=== PATIENT | male | born 1945 | race Caucasian/White ===

== ENCOUNTER 2023-01-31 13:47 | Inpatient (IN) | payer MEDICARE, SELFPAY ==
[2023-01-31] VITALS (52 sets, daily range): BP systolic 123–199; BP diastolic 63–117; PULSE 80–96; RESP 14–25; TEMP 36.9; O2SAT 93–100
--- NOTE | ~2023-01-31 | XR_ITS ---
XR chest 1V portable 01/31/2023 15:56 Indication: Stroke Procedure: AP portable chest Comparison: No prior studies for comparison. Findings: Status post median sternotomy for CABG. Cardiomegaly. Calcified granuloma left lung base. N o focal pneumonia, edema, pleural effusion or pneumothorax. Impression: 1: No acute cardiopulmonary disease. Reviewed, dictated and finalized at location B. CONSULTANT Impression: 1: No acute cardiopulmonary disease.
--- NOTE | ~2023-01-31 | US_ITS ---
EXAMINATION: US abdomen limited DATE: 02/03/2023 14:44 INDICATION: Abnormal liver function tests. TECHNIQUE: Multiple grayscale and Doppler ultrasound images of the abdomen were obtained. COMPARISON: None FINDINGS: The visualized portions of the head and body of the pancreas are normal. There is diffuse h epatic steatosis. No liver surface nodularity. There is normal flow in main portal vein. The gallblad sindy is absent. The common duct is normal and measures 8 mm. IMPRESSION: 1. Diffuse hepatic steatosis. Reviewed, dictated and finalized at location E. E INSTALLATION MANAGER
--- NOTE | ~2023-01-31 | MR_ITS ---
MRI of the brain Clinical History: CVA Technique: Axial diffusion weighted imaging and ADC map were performed. Patient terminated exam at th is point. No additional sequences were performed.. Findings: There is a large relatively wedge-shaped area of restricted diffusion in the left parietal lobe, with additional restricted diffusion in the immediate left periventricular white matter and foc ally in the anterior left corpus callosum and inferomedial left frontal lobe. These areas are all con sistent with areas of acute to subacute infarct. No midline shift or ventricular compression evident. IMPRESSION: Large acute to subacute infarct in the left parietal lobe, with additional acute infarct in the immed iate left periventricular white matter and the anterior corpus callosum and adjacent inferomedial lef t frontal lobe. Reviewed, dictated and finalized at location . ROASTER IMPRESSION: Large acute to subacute infarct in the left parietal lobe, with additional acut e infarct in the immediate left periventricular white matter and the anterior c orpus callosum and adjacent inferomedial left frontal lobe.
--- NOTE | ~2023-01-31 | CT_ITS ---
CT ANGIOGRAM NECK AND HEAD History: CVA. Technique: Axial noncontrast imaging of the brain was performed. Serial spiral axial images through t he head and neck were then obtained during arterial phase IV injection of 100 cc of Omnipaque 350. 3- D postprocessing and MIP images were then reconstructed on the remote workstation. Dose reduction federica hnique was used on this scan by utilizing automated exposure control and iterative reconstruction federica hnique. The dose-length product (DLP) was 1859.89 mGy-cm. COMPARISON: 01/31/2023 CTA neck findings: Bilateral vertebral arteries are patent. There is a focal high-grade stenosis at the distal left vertebral artery near the foramen magnum. Right vertebral artery is patent. There is focal moderate stenosis at the right vertebral artery at the level of C4. Bilateral common carotid, i nternal carotid, external carotid arteries are patent. Low-grade stenosis, possibly 10%, the proximal left internal carotid artery noted. Low-grade, approximately 15% stenosis, of the proximal right int ernal carotid artery again noted. The proximal right internal carotid artery demonstrates 15% stenosi s relative to the normal distal artery lumen diameter. The proximal left internal carotid artery demo nstrates 10% stenosis relative to the normal distal artery lumen diameter. CTA head findings: Basilar artery and posterior cerebral arteries are patent. Distal internal carotid arteries and anterior cerebral arteries are patent. There are stable focal moderate stenoses in the proximal posterior cerebral arteries bilaterally. Stable focal high-grade stenosis in the left anteri or cerebral artery noted. Axial noncontrast imaging of the brain demonstrates acute to subacute left parietal lobe infarct, min imally avulsed from prior exam. No acute intracranial hemorrhage evident. Stable chronic white matter changes. Minimal subarachnoid spaces are mildly dilated. No midline shift. Paranasal sinuses are gloria ar. Impression: Overall, probably no significant change from prior exam. Left parietal lobe infarct is similar, with mild interval evolution. No intracranial hemorrhage. Stable areas of stenosis, including high-grade stenosis at the distal left vertebral artery, moderate stenosis of the mid right vertebral artery, moderate stenoses in the proximal posterior cerebral art eries bilaterally, and high-grade stenosis in the left anterior cerebral artery. Mild stenosis of the proximal internal carotid arteries bilaterally, as detailed above. Reviewed, dictated and finalized at location M. TAL MEDIA ASSOCIATE Impression: Overall, probably no significant change from prior exam. Left parietal lobe inf arct is similar, with mild interval evolution. No intracranial hemorrhage. Stable areas of stenosis, including high-grade stenosis at the distal left vert ebral artery, moderate stenosis of the mid right vertebral artery, moderate florencia noses in the proximal posterior cerebral arteries bilaterally, and high-grade s tenosis in the left anterior cerebral artery. Mild stenosis of the proximal internal carotid arteries bilaterally, as detaile d above.
--- NOTE | ~2023-01-31 | CT_ITS ---
EXAMINATION: CTA brain carotid DATE: 01/31/2023 15:09 INDICATION: Right arm weakness. TECHNIQUE: Computed tomographic angiography (CTA) of the head was performed without and with 100 mL O mnipaque-350 intravenous contrast. CTA of the neck was performed with intravenous contrast. Automated exposure control and iterative reconstruction technique were employed. The dose-length product was 1 804.52 mGy-cm. Maximum intensity projection and volume rendered 3D-reconstructions were created by dat may technologist on a separate workstation. COMPARISON: Head CT 01/25/2023 FINDINGS: HEAD CTA: There is an infarct in left parietal lobe. There are scattered areas of low attenuation in the cerebral white matter. There are old lacunar infarcts in the bilateral basal ganglia. There is no intracranial hemorrhage or abnormal mass lesion. The ventricles are normal in size. There is mucosal thickening in the paranasal sinuses. There are old fractures of the nasal bones. There are old blowo ut fractures of medial wall and floor of left orbit. The mastoid air cells are normal. There is moder ate stenosis of intracranial left vertebral artery. The vertebral arteries are codominant. There is n o significant stenosis of basilar artery. There is moderate stenosis of right P1 posterior cerebral a rtery and left P2 posterior cerebral artery. There is moderate stenosis of the intracranial internal carotid arteries. There is severe stenosis of left A2 anterior cerebral artery. The anterior communi cating artery is normal. The posterior communicating arteries are normal. There is no aneurysm. NECK CTA: There are no pathologically enlarged lymph nodes. There is no significant stenosis of the c ervical vertebral arteries. There is plaque in the proximal internal carotid arteries. There is 18% s tenosis of the proximal right internal carotid artery relative to normal distal artery lumen diameter (NASCET criteria). There is 8% stenosis of the proximal left internal carotid artery relative to nor mal distal artery lumen diameter. There are changes of anterior fusion procedure from 3 C3-C7. There is severe thoracic spondylosis and mild cervical spondylosis. IMPRESSION: 1. Acute/subacute infarct in left parietal lobe, worsened from 01/25/2023. 2. Old lacunar infarcts in the bilateral basal ganglia. 3. Moderate nonspecific cerebral white matter disease, which likely represents chronic small vessel i schemic disease. 4. Severe stenosis of left A2 anterior cerebral artery. 5. Moderate stenosis of right P1 posterior cerebral artery and left P2 posterior cerebral artery. 6. Moderate stenosis of the intracranial internal carotid arteries. 7. Focal moderate stenosis of intracranial left vertebral artery. 8. 18% stenosis of the proximal right internal carotid artery relative to normal distal artery lumen diameter (NASCET criteria). 9. 8% stenosis of the proximal left internal carotid artery relative to normal distal artery lumen di ameter. Reviewed, dictated and finalized at location E. FRAME ASSEMBLER IMPRESSION: 1. Acute/subacute infarct in left parietal lobe, worsened from 01/25/2023. 2. Old lacunar infarcts in the bilateral basal ganglia. 3. Moderate nonspecific cerebral white matter disease, which likely represents chronic small vessel ischemic disease. 4. Severe stenosis of left A2 anterior cerebral artery. 5. Moderate stenosis of right P1 posterior cerebral artery and left P2 posterio r cerebral artery. 6. Moderate stenosis of the intracranial internal carotid arteries. 7. Focal moderate stenosis of intracranial left vertebral artery. 8. 18% stenosis of the proximal right internal carotid artery relative to lanie l distal artery lumen diameter (NASCET criteria). 9. 8% stenosis of the proximal left internal carotid artery relative to normal
--- NOTE | 2023-01-31 13:53 | ED.NEUROSD ---
HPI - Neuro Symptoms/Deficit General Chief Complaint: Neuro Symptoms/Deficit Stated Complaint: neuro sx since tuesday Source: patient, family (daughter and granddaughter) and other (EMS report to RN) Mode of arrival: EMS History of Present Illness HPI Narrative: This is a 77 year old left hand dominant male with report of a recent CVA (01/13/2023) presenting from [facility]. It is reported that he has subsequent R sided deficits but had been able to move his right arm and leg somewhat. Starting this past Tuesday, it seemed to be getting progressively worse, until he started having reported full flaccidity in RUE and RLE and there was also concern of a R sided droop. Last known well > 24 hours ago given this. No report of TPA given with initial stroke but there was possible surgical intervention. A&OX4. EMS reported PVCs with some bigeminy which resolved with O2. POC glucose for EMS 312mg/dL. On my exam, patient confirms he has been having difficulty moving RUE and RLE, unable to move the arm at all today but does demonstrate movement of leg on my exam. He is concerned about his pain regimen. Per documentation, he takes 30mg morphine BID for chronic pain and has PRN [place]. Patient has documentation of the HPI from [facility] where he was admitted 01/24/2023. the primary reason for rehab is acute infarct over anterior corpus callosum and left frontoparietal region. He initially presented to [facility] on 01/13/2023. At that time CTH was negative for intracranial process. He was awaiting MRI of the brain and cervical spine we had an episode of acute right-sided weakness and a code stroke was called on 01/17/2023. MRI of the brain was performed and demonstrated acute infarct over anterior corpus callosum and left frontoparietal region.... No mural thrombosis or valvular vegetation on echo... left ICA stenosis to 69%. Tele stroke team consulted. Patient transferred to [facility] for evaluation for possible CVA versus carotid stent. Neurosurgery consulted. The patient underwent carotid revascularization of the angioplasty and stenting 01/19/2023. No intervention indicated due to no significant ICA. Postprocedure, the patient has several PVCs. Cardiology was consulted. Related Data Home Medications Medication Instructions Recorded Confirmed aspirin 81 mg tablet,delayed 81 mg PO DAILY 01/24/23 02/01/23 release atorvastatin 40 mg tablet 40 mg PO DAILY 01/24/23 02/01/23 carvedilol 6.25 mg tablet 6.25 mg PO BID 01/24/23 02/01/23 clopidogrel 75 mg tablet 75 mg PO DAILY 01/24/23 02/01/23 docusate sodium 100 mg tablet 200 mg PO DAILY 01/24/23 02/01/23 empagliflozin 25 mg tablet 25 mg PO DAILY 01/24/23 02/01/23 (Jardiance) furosemide 20 mg tablet 20 mg PO DAILY 01/24/23 02/01/23 hydrocodone-acetaminophen 5 - 325 mg PO Q8H PRN Pain 01/24/23 02/01/23 ketotifen fumarate 0.025 % (0.035 1 drp EACH EYE BID 01/24/23 02/01/23 %) eye drops (Allergy Eye (ketotifen)) lisinopril 10 mg tablet 10 mg PO DAILY 01/24/23 02/01/23 methylnaltrexone 150 mg tablet 450 mg PO DAILY 01/24/23 02/01/23 (Relistor) methylnaltrexone 150 mg tablet 450 mg PO DAILY 01/24/23 02/01/23 (Relistor) morphine 30 mg tablet,extended 30 mg PO Q12H 01/24/23 02/01/23 release ondansetron 4 mg disintegrating 4 mg PO Q8H PRN Nausea And Vomiting 01/24/23 02/01/23 tablet tamsulosin 0.4 mg capsule 4 mg PO DAILY 01/24/23 02/01/23 Allergies Allergy/AdvReac Type Severity Reaction Status Date / Time No Known Allergies Allergy Verified 01/31/23 14:55 [facility] Past Medical History Medical History BPH (benign prostatic hyperplasia) CAD (coronary artery disease) Cardiac LV ejection fraction of 35-39% Carotid artery stenosis with cerebral infarction Left December 2022 Cervical disc disease Chronic back pain Chronic hypoxic respiratory failure, on home oxygen therapy COPD (chronic
--- NOTE | 2023-01-31 13:54 | ECG_ITS ---
Measurements Intervals [place] Rate: 96 P: 66 [place]: 165 QRS: 59 QRSD: 82 T: 76 QT: 371 QTc: 470 Interpretive Statements SINUS RHYTHM WITH OCCASIONAL VENTRICULAR PREMATURE COMPLEXES NONSPECIFIC T-WAVE ABNORMALITY ABNORMAL ECG NO PREVIOUS ECG AVAILABLE FOR COMPARISON Electronically Signed On 01-31-2023 15:30:37 BRICK GRADER by Ozzy Velázquez M.D.
[2023-01-31 14:29] LABS: Basophils Absolute Auto 0.1 K/mm3 (0.0-0.1); Basophils Percent Auto 0.7 % (0.2-1.2); Eosinophils Absolute Auto 0.2 K/mm3 (0-0.3); Hemoglobin 15.8 g/dL (14.0-18.0); Immature Granulocyte Absolute 0.39 K/mm3 (0.00-0.031); Immature Granulocyte Percent A 3.3 % (0-0.5); Lymphocytes Absolute Auto 1.82 K/mm3 (0.9-3.2); Lymphocytes Percent Auto 15.2 % (18.3-44.2); Mean Corpuscular HGB Conc 31.6 g/dl (32-36); Mean Corpuscular Hemoglobin 28.1 pg (26-34); Mean Platelet Volume 11.7 fl (7.4-10.4); Monocytes Percent Auto 8.4 % (2.6-8.5); Neutrophils Absolute Auto 8.4 K/mm3 (1.3-6.7); Neutrophils Percent Auto 70.4 % (45.5-73.1); Platelet Count Result 238 k/mm3 (150-375); Red Blood Count 5.62 M/mm3 (4.6-6.20); Red Cell Distribution Width 14.9 % (11.5-14.5)
[2023-01-31 14:40] LABS: Alanine Aminotransferase 93 U/L (6-50); Albumin Level 3.6 g/dL (3.5-5.1); Alkaline Phosphatase 317 U/L (38-126); Anion Gap 5 mmol/L (8-16); Aspartate Amino Transferase 46 U/L (17-59); Bilirubin,Total 0.8 mg/dL (0.2-1.3); Blood Urea Nitrogen 28 mg/dL (9-20); Calcium 9.3 mg/dL (8.4-10.2); Carbon Dioxide 30 mmol/L (22-30); Chloride 102 mmol/L (98-107); Estimated CRCL calculation 70 ml/min; Estimated Glomerular Filt Rate > 60; Glucose 234 mg/dL (65-110); Potassium 4.3 mmol/L (3.4-5.0); Sodium 137 mmol/L (137-145)
[2023-01-31 14:46] LABS: Prothrombin Time 13.9 Seconds (11.1-14.7)
[2023-01-31 14:47] LABS: Partial Thromboplastin Time 30.3 SECONDS (22.3-36.8)
[2023-01-31 14:51] LABS: Troponin I 0.012 ng/mL (0.000-0.034)
[2023-01-31] MEDS: HYDROcodone/acetaminophen (*CRX) 5-325 MG TABLET 1 TAB PO ×2 (16:32→22:22)
--- NOTE | 2023-01-31 18:37 | PC.NURSE ---
1825- spoke with Lyndsey from [facility] transfer center, updates given, will call with bed when it is available
[2023-01-31] MEDS: MORPHINE SULFATE (*CRX) 30 MG TABCR PO (19:39)
--- NOTE | 2023-01-31 22:50 | PC.NURSE ---
per family pt. is not to be transferred to [facility] for further care. pt. family requesting pt. be kept here at [facility]. ERP aware and agrees to this plan. RN cancelled pt. bed request at [facility].
[2023-01-31] MEDS: ACETAMINOPHEN 325 MG TABLET 650 MG PO (23:22)
[2023-02-01] VITALS (13 sets, daily range): BP systolic 107–156; BP diastolic 60–77; PULSE 75–101; RESP 14–29; TEMP 36.1–36.3; O2SAT 95–100; BMI 29.2
--- NOTE | 2023-02-01 01:52 | PC.NURSE ---
Unable to confirm a current list of medications with patient r/t confusion. Called [facility] to get medication list and Charge nurse says she is unable to access patient's chart because she discharged him from the system. Medication list reconciled from list from 01/24/23. Dr. Love made aware.
[2023-02-01] MEDS: HYDROcodone/acetaminophen (*CRX) 5-325 MG TABLET 1 TAB PO ×3 (06:08→15:10)
--- NOTE | 2023-02-01 06:55 | PM.IMHP ---
H&P: HPI History of Present Illness Date/Time: 02/01/23 06:55 Chief Complaint: Worsening right-sided weakness Narrative: 77-year-old male with a past medical history of systolic congestive heart failure type 2 diabetes mellitus, coronary artery disease, hyperlipidemia and chronic back pain on chronic opiate therapy who presented to the ER from [place] [facility] due to increasing weakness of the right a body. The patient had been admitted to the hospital on 2022 at [facility] due to acute stroke. The patient was awaiting an MRI of the brain and cervical spine UA had an acute episode of for right sided weakness on the . MRI at that time demonstrated an acute infarct of the anterior corpus callosum and left frontal parietal region. He had echocardiogram at that time did demonstrate EF of 35-40 %. He was transferred to [place] for evaluation for possible placement of carotid state given the and left internal carotid stenosis up to 69%. The patient underwent carotid revascularization via angioplasty and stenting on the . The patient's stay was complicated that time but episodes of PVCs for which patient's home Coreg was restarted. Patient also had medication adjustments for heart failure. Patient was evaluated by speech therapy OT and PT. The patient swallow evaluation was normal and he was continued on a consistent carbohydrate diet but of normal consistency. The patient has persisted right-sided weakness following his CVA. He was undergoing therapy. The around 13:30 the patient had increased right-sided weakness and increased slurred speech and the patient was sent to our facility for evaluation. The patient reportedly had complete flaccid paralysis of the right side at the rehab facility with by time he arrived to the ER he was moving his right leg. The patient states he has not been able to move his hand since his stroke. His speech is clear but slow. He denies any visual changes, headache or neurologic symptoms. Nursing staff noted that the patient's foreskin and penis were excoriated and red due to urinary incontinence in a pure wick catheter has been placed. He denies any dysuria or changes in urinary frequency. He denies any abdominal pain reports normal bowel movements. Nursing staff reports patient is alert oriented but seems to be having occasional moments of confusion overnight. At the time of my evaluation is alert orient x4. Source of information comes from patient is a fair historian. ER records, reports from outside facility and nursing report. Review of Systems Review of Systems: 12 systems were reviewed with pertinent positives and negatives per HPI. Except as documented in the HPI, all other systems were reviewed and are negative. [facility] Past Medical History Medical History (Updated 02/01/23 @ 07:50 by Kristin Love DO) BPH (benign prostatic hyperplasia) CAD (coronary artery disease) Cardiac LV ejection fraction of 35-39% Carotid artery stenosis with cerebral infarction Left December 2022 Cervical disc disease Chronic back pain Chronic hypoxic respiratory failure, on home oxygen therapy COPD (chronic obstructive pulmonary disease) Lumbar disc disease Type 2 diabetes mellitus Surgical History Surgical History (Updated 02/01/23 @ 07:12 by Kristin Love DO) History of common carotid artery stent placement Family History Family History (Updated 02/01/23 @ 07:20 by Kristin Love DO) Other Unknown family medical history Social History Social History (Updated 02/01/23 @ 07:22 by Kristin Love DO) Social History: Prior to his stroke the patient lives at home with his of 55 years and their son. He was independent with a activities of daily living and still driving. Patient is left handed. Smoking packs per day: 1 Smoking cigarettes per day: 20.0 Years smoked: 25 Smoking pack-years: 25.00 Smoking status: Former smoker Additional smoking
[2023-02-01 07:42] LABS: Glucose Point of Care 184 mg/dl (65-105)
[2023-02-01] MEDS: MORPHINE SULFATE (*CRX) 30 MG TABCR PO ×2 (08:59→21:04)
[2023-02-01] MEDS: carvediloL 6.25 MG TABLET PO ×2 (08:59→21:04)
[2023-02-01] MEDS: TAMSULOSIN HCL 0.4 MG CAPSULE PO (08:59)
[2023-02-01] MEDS: EMPAGLIFLOZIN 25 MG TABLET PO (08:59)
[2023-02-01] MEDS: CLOPIDOGREL BISULFATE 75 MG TABLET PO (08:59)
[2023-02-01] MEDS: lisinopriL 10 MG TABLET PO (08:59)
[2023-02-01] MEDS: ASPIRIN 81 MG CHEWABLE TABLET PO (09:05)
[2023-02-01] MEDS: ATORVASTATIN 40 MG TABLET PO (09:06)
[2023-02-01] MEDS: FUROSEMIDE 20 MG TABLET PO (09:06)
[2023-02-01] MEDS: DOCUSATE SODIUM 100 MG CAPSULE 200 MG PO (09:06)
[2023-02-01 12:05] LABS: Glucose Point of Care 184 mg/dl (65-105)
--- NOTE | 2023-02-01 12:40 | WPDNEURCNPN ---
Assessment and Plan Assessment and plan (1) CVA (cerebral vascular accident): Qualifiers: CVA mechanism: unspecified Qualified Code(s): I63.9 - Cerebral infarction, unspecified Code(s): I63.9 - Cerebral infarction, unspecified Status: Acute (2) Type 2 diabetes mellitus with hyperglycemia: Qualifiers: Diabetes mellitus mcfp insulin use: without intermediate school teacher use Qualified Code(s): E11.65 - Type 2 diabetes mellitus with hyperglycemia Code(s): E11.65 - Type 2 diabetes mellitus with hyperglycemia Status: Acute Plan left acute and subacute infarct in left parietal lobe with additional infarct in the immediate left periventricular white matter and the anterior corpus callosum and adjacent inferior medial left frontal lobe documented on the study on February 01, 2023 and CTA on January 31, 2023 documented acute subacute infarct in left parietal lobe which is worsening from January 25, 2023 in addition to old lacunar infarcts in bilateral basal ganglia moderate nonspecific white matter disease, severe stenosis of the left A2 anterior cerebral artery, moderate stenosis of the right P1 posterior cerebral artery left P2 posterior cerebral artery, moderate stenosis of intracranial internal carotid arteries, and focal moderate stenosis of intracranial left vertebral artery with 18% stenosis of proximal right internal carotid on 8% stenosis of proximal left internal carotid artery considering these multiple medium vessel disease he will not require any further intracranial arterial intervention will continue with the aspirin 81mg daily Plavix 75mg daily, atorvastatin 40mg daily, all his cardiac medications and antihypertensive medication thorough discussion will be provided to the family and he will benefit from the ongoing physical therapy. Consult date: 02/01/23 HPI: Aristides Valladares is a 77 year old male Admitted to the hospital through the emergency room on transfer from the [facility] where he was admitted on January 24, 2023 for acute infarct involving the anterior corpus callosum and left frontoparietal region as per the information available patient had presented to [facility] on January 13, [address] scan of the head was negative for the bleed and while he was waiting for the MRI of the brain and cervical spine he had an episode of acute right-sided weakness and a code stroke status was called on January 17, 2023 at that particular time MRI of the brain was performed which demonstrated acute infarct over the anterior corpus callosum and left frontoparietal region. There was also documentation of the left internal carotid artery stenosis to 69% by the cardiac studies were negative for the mural thrombosis or valvular vegetation he was transferred to [facility] for further evaluation and also for the possibility of carotid stenting because of left ICA stenosis patient revascularization and angioplasty and stenting on January 19, 2023 and in the post of. Patient was noted to have several PVCs and the candle molder were consulted as well, contain on aspirin 81mg daily with atorvastatin 40mg daily carvedilol 6.25mg b.i.d. and clopidogrel 75mg daily in addition to the antihypertensive medication that is lisinopril 10mg daily, patient does have ongoing history of coronary artery disease, chronic low back pain with lumbar disc disease, type 2 diabetes mellitus, never smoker, his initial exam in the emergency room documented normal vital signs was blood pressure 192/82 he was continued on aspirin and clopidogrel [facility] was contacted neurosurgical service for the and no further intervention was suggested again the consideration was given to the comparison of CTA this time his lab CBC was normal, BMP was normal except glucose of 234 and head neck CTA documented acute subacute infarct in the left parietal lobe which was worsening from January 25, 2023 in addition to
--- NOTE | 2023-02-01 16:14 | PM.IMPN ---
Progress Note: A&P Assessment and Plan (1) CVA (cerebral vascular accident): Qualifiers: CVA mechanism: unspecified Qualified Code(s): I63.9 - Cerebral infarction, unspecified Code(s): I63.9 - Cerebral infarction, unspecified Status: Acute Assessment and Plan: 02/01/2023: patient recently diagnosed with CVA at [facility] and was at acute rehab when he started to complain of worsening right-sided weakness and slurred speech which brought him in however the time he reached the ED he was able to move his right leg head and neck CTA show acute/ subacute infarct in the left parietal lobe which is worsened from 01/25/2023, moderate nonspecific cerebral white matter disease likely represents chronic small vessel ischemic disease, severe stenosis of left A2 anterior cerebral artery, moderate stenosis in right and left posterior cerebral artery, moderate stenosis of the intracranial internal carotid arteries. Brain MRI shows large acute to subacute infarct in the left parietal lobe, with additional acute infarct in the immediate left periventricular white matter and the anterior corpus callosum and adjacent inferiomedial left frontal. Neurology consulted and recommending no further intervention other than to continue aspirin, Protonix, atorvastatin, and blood pressure medications. In light of his transaminitis which is elevated from previous lab, we will still hold the atorvastatin we will continue to monitor labs Case coordination to arrange transfer back to rehab facility (2) Hemiparesis affecting right side as late effect of cerebrovascular accident: Code(s): I69.351 - Hemiplegia and hemiparesis following cerebral infarction affecting right dominant side Status: Acute Assessment and Plan: 02/01/2023 noted see above (3) Type 2 diabetes mellitus with hyperglycemia: Qualifiers: Diabetes mellitus shelter insulin use: without optical technician use Qualified Code(s): E11.65 - Type 2 diabetes mellitus with hyperglycemia Code(s): E11.65 - Type 2 diabetes mellitus with hyperglycemia Status: Acute Assessment and Plan: 02/01/2023: blood sugars ranging 156-184 Accu-Cheks AC and HS continue sliding scale insulin will check hemoglobin A1c in the morning labs. Time Spent With Patient Time with patient: Greater than 35 minutes Subjective Date/time seen: 02/01/23 16:14 Interval history: This is a 77-year-old male who presented to the hospital today for evaluation of increased weakness on right side of his body. He was hospitalized at at [facility] due to acute stroke. he was noted to have an increase in his right-sided weakness at the rehab center and some slurred speech. he was sent here for an evaluation. By the time he presented to our ER he was already moving his right leg. Work up in the hospital includes. Head and neck CTA which shows an acute/ subacute infarct in the left parietal lobe which is worsened from 01/25/2023, severe stenosis of left A2 anterior cerebral artery, moderate stenosis in the right P1 posterior cerebral artery and left P2 posterior cerebral artery, moderate stenosis of the intracranial internal carotid arteries, old lacunar infarcts in the bilateral basal ganglia, moderate nonspecific cerebral white matter disease which likely represents chronic small vessel ischemic disease. CXR was normal. Brain MRI shown Large acute to subacute infarct in the left parietal lobe with additional acute infarct in the immediate left periventricular white matter and the anterior corpus callosum and adjacent inferomedial left frontal lobe. On examination today patient is alert and oriented x3. Labs today reveal transaminitis AST of 183, ALT 165, alk-phos 399 which is increased from previous. Total bili 1.2, blood sugars ranging 156-184, BUN 25, creatinine 0.9, potassium 4.3, white blood cell count 10.4. Vital signs are stable, is afebrile, he
[2023-02-01 16:42] LABS: Glucose Point of Care 156 mg/dl (65-105)
[2023-02-01 17:29] LABS: Alanine Aminotransferase 165 U/L (6-50); Albumin Level 3.8 g/dL (3.5-5.1); Alkaline Phosphatase 399 U/L (38-126); Anion Gap 6 mmol/L (8-16); Aspartate Amino Transferase 183 U/L (17-59); Bilirubin,Total 1.2 mg/dL (0.2-1.3); Blood Urea Nitrogen 25 mg/dL (9-20); Calcium 9.5 mg/dL (8.4-10.2); Carbon Dioxide 34 mmol/L (22-30); Chloride 97 mmol/L (98-107); Estimated CRCL calculation 55 ml/min; Estimated Glomerular Filt Rate > 60; Glucose 261 mg/dL (65-110); Potassium 4.3 mmol/L (3.4-5.0); Sodium 137 mmol/L (137-145)
[2023-02-01 17:31] LABS: Basophils Absolute Auto 0.1 K/mm3 (0.0-0.1); Eosinophils Absolute Auto 0.1 K/mm3 (0-0.3); Eosinophils Percent Auto 1.4 % (0-4.4); Hematocrit 52.1 % (42.0-52.0); Hemoglobin 16.7 g/dL (14.0-18.0); Immature Granulocyte Absolute 0.44 K/mm3 (0.00-0.031); Immature Granulocyte Percent A 4.2 % (0-0.5); Lymphocytes Percent Auto 19.3 % (18.3-44.2); Mean Corpuscular HGB Conc 32.1 g/dl (32-36); Mean Corpuscular Hemoglobin 28.5 pg (26-34); Mean Corpuscular Volume 89.1 fl (80-100); Mean Platelet Volume 11.6 fl (7.4-10.4); Monocytes Absolute Auto 0.9 K/mm3 (0.1-0.6); Monocytes Percent Auto 8.2 % (2.6-8.5); Neutrophils Absolute Auto 6.8 K/mm3 (1.3-6.7); Neutrophils Percent Auto 65.9 % (45.5-73.1); Platelet Count Result 292 k/mm3 (150-375); Red Blood Count 5.85 M/mm3 (4.6-6.20); Red Cell Distribution Width 14.6 % (11.5-14.5); White Blood Count 10.4 K/mm3 (4.5-10.0)
[2023-02-01] MEDS: INSULIN ASPART (*BKC) 100 UNITS/ML SUB-Q (21:09)
[2023-02-01 21:13] LABS: Glucose Point of Care 254 mg/dl (65-105)
[2023-02-02] VITALS (11 sets, daily range): BP systolic 100–129; BP diastolic 61–85; PULSE 73–104; RESP 18–20; TEMP 36.1–36.6; O2SAT 95–98
[2023-02-02 06:53] LABS: Basophils Absolute Auto 0.1 K/mm3 (0.0-0.1); Basophils Percent Auto 1.2 % (0.2-1.2); Eosinophils Absolute Auto 0.2 K/mm3 (0-0.3); Eosinophils Percent Auto 1.7 % (0-4.4); Hematocrit 49.2 % (42.0-52.0); Hemoglobin 15.8 g/dL (14.0-18.0); Immature Granulocyte Absolute 0.44 K/mm3 (0.00-0.031); Immature Granulocyte Percent A 3.8 % (0-0.5); Lymphocytes Absolute Auto 1.78 K/mm3 (0.9-3.2); Lymphocytes Percent Auto 15.6 % (18.3-44.2); Mean Corpuscular HGB Conc 32.1 g/dl (32-36); Mean Corpuscular Hemoglobin 28.6 pg (26-34); Mean Platelet Volume 11.6 fl (7.4-10.4); Monocytes Absolute Auto 1.2 K/mm3 (0.1-0.6); Monocytes Percent Auto 10.8 % (2.6-8.5); Neutrophils Absolute Auto 7.6 K/mm3 (1.3-6.7); Neutrophils Percent Auto 66.9 % (45.5-73.1); Platelet Count Result 256 k/mm3 (150-375); Red Blood Count 5.53 M/mm3 (4.6-6.20); Red Cell Distribution Width 14.8 % (11.5-14.5); White Blood Count 11.4 K/mm3 (4.5-10.0)
[2023-02-02 07:06] LABS: Alanine Aminotransferase 153 U/L (6-50); Albumin Level 3.5 g/dL (3.5-5.1); Alkaline Phosphatase 371 U/L (38-126); Anion Gap 8 mmol/L (8-16); Aspartate Amino Transferase 106 U/L (17-59); Blood Urea Nitrogen 34 mg/dL (9-20); Calcium 9.6 mg/dL (8.4-10.2); Carbon Dioxide 28 mmol/L (22-30); Chloride 102 mmol/L (98-107); Estimated CRCL calculation 62 ml/min; Estimated Glomerular Filt Rate > 60; Glucose 155 mg/dL (65-110); Potassium 4.5 mmol/L (3.4-5.0); Sodium 138 mmol/L (137-145)
[2023-02-02 07:38] LABS: Hemoglobin A1C 7.4 % (<5.7)
[2023-02-02] MEDS: ASPIRIN 81 MG CHEWABLE TABLET PO (08:17)
[2023-02-02] MEDS: carvediloL 6.25 MG TABLET PO ×2 (08:18→20:33)
[2023-02-02] MEDS: CLOPIDOGREL BISULFATE 75 MG TABLET PO (08:18)
[2023-02-02] MEDS: DOCUSATE SODIUM 100 MG CAPSULE 200 MG PO (08:19)
[2023-02-02] MEDS: FUROSEMIDE 20 MG TABLET PO (08:19)
[2023-02-02] MEDS: EMPAGLIFLOZIN 25 MG TABLET PO (08:19)
[2023-02-02] MEDS: MORPHINE SULFATE (*CRX) 30 MG TABCR PO ×2 (08:19→20:33)
[2023-02-02] MEDS: TAMSULOSIN HCL 0.4 MG CAPSULE PO (08:19)
[2023-02-02 08:24] LABS: Glucose Point of Care 160 mg/dl (65-105)
[2023-02-02] MEDS: lisinopriL 10 MG TABLET PO (08:40)
[2023-02-02] MEDS: HYDROcodone/acetaminophen (*CRX) 5-325 MG TABLET 1 TAB PO ×2 (09:35→18:03)
[2023-02-02 11:58] LABS: Glucose Point of Care 184 mg/dl (65-105)
--- NOTE | 2023-02-02 12:18 | WPDNEUROPN ---
Subjective Date/time seen: 02/02/23 12:18 Interval history: status post stroke as outlined before being treated with the aspirin and Plavix in addition to other medications brain MRI was obtained on February 01, 2023 which documented large acute to subacute infarct in the left parietal lobe with additional acute infarct in the immediate left periventricular white matter in the anterior corpus callosum and adjacent inferior medial left frontal lobe basically unchanged from previous evaluations and on clinical examination patient is awake alert cooperative sitting in chair following all the verbal commands appropriately his speech not dysphasic not dysarthric not dysphonic he has gross right sal plegia and would like to go back to the Stroke rehab for further ongoing care advised the nurse that he can be discharged and transferred to the rehab no further neurological intervention was suggested with Objective Data Vital Signs Vital Signs: Vital Signs - 24 hr 02/01/23 14:00 02/01/23 16:00 02/01/23 21:00 Temperature 36.3 C L 36.1 C L Pulse Rate 90 91 78 Respiratory Rate 20 20 Blood Pressure 118/60 107/70 Pulse Oximetry 97 100 Oxygen Delivery Oxygen Flow Rate 02/01/23 20:00 02/01/23 20:00 02/02/23 00:00 Temperature Pulse Rate 84 76 Respiratory Rate Blood Pressure Pulse Oximetry 100 Oxygen Delivery Nasal Cannula Oxygen Flow Rate 3 02/02/23 04:00 02/02/23 04:36 02/02/23 08:18 Temperature 36.3 C L Pulse Rate 76 78 78 Respiratory Rate 18 Blood Pressure 110/68 Pulse Oximetry 98 Oxygen Delivery Oxygen Flow Rate 02/02/23 09:34 02/02/23 08:00 Temperature Pulse Rate Respiratory Rate Blood Pressure Pulse Oximetry 98 Oxygen Delivery Room Air Nasal Cannula Oxygen Flow Rate 3 Intake/Output Intake/Output: Intake & Output 01/30/23 01/31/23 02/01/23 02/02/23 23:59 23:59 23:59 23:59 Intake Total 956 360 Output Total 450 650 Balance 506 -290 Meds/Results Medications: Active Medications Generic Name Dose Route Start Last Admin Trade Name Freq PRN Reason Stop Dose Admin Acetaminophen 650 mg 01/31/23 19:24 01/31/23 23:22 Acetaminophen 325 Mg Tablet PO 650 mg Q4H PRN Administration Mild Pain (1-3) or Fever Hydrocodone Bitart/Acetaminophen 1 tab 01/31/23 22:18 02/02/23 09:35 Hydrocodone/Acetaminophen (*Crx) 5-325 Mg Tablet PO 1 tab Q4H PRN Administration Pain Rated 4-6 Aspirin 81 mg 02/01/23 08:00 02/02/23 08:17 Aspirin 81 Mg Chewable Tablet PO 81 mg DAILY@0800 GALILEO Administration Carvedilol 6.25 mg 02/01/23 09:00 02/02/23 08:18 Carvedilol 6.25 Mg Tablet PO 6.25 mg Q12HR GALILEO Administration Clopidogrel Bisulfate 75 mg 02/01/23 09:00 02/02/23 08:18 Clopidogrel Bisulfate 75 Mg Tablet PO 75 mg DAILY GALILEO Administration Dextrose 12.5 gm 02/01/23 03:47 Dextrose 50% 25 Gm/50 Ml Syringe IV PUSH PRN PRN Hypoglycemia Protocol Docusate Sodium 200 mg 02/01/23 09:00 02/02/23 08:19 Docusate Sodium 100 Mg Capsule PO 200 mg DAILY GALILEO Administration Empagliflozin 25 mg 02/01/23 09:00 02/02/23 08:19 Empagliflozin 25 Mg Tablet PO 25 mg DAILY GALILEO Administration Furosemide 20 mg 02/01/23 09:00 02/02/23 08:19 Furosemide 20 Mg Tablet PO 20 mg DAILY GALILEO Administration Glucagon 1 mg 02/01/23 03:47 Glucagon For Inj 1 Mg Vial IM PRN PRN Hypoglycemia Protocol Glucose 15 gm 02/01/23 03:47 Glucose Oral Gel 15 Gm Of Glucse In 37.5 Gm Tube PO PRN PRN Hypoglycemia Protocol Dextrose 1,000 mls @ 100 mls/hr 02/01/23 03:47 Dextrose 5% 1,000 Ml IVPB PRN PRN Hypoglycemia Protocol Insulin Aspart 1 - 3 units 02/01/23 21:00 02/01/23 21:09 Insulin Aspart (*Bkc) 100 Units/Ml SUB-Q 2 units HS GALILEO Administration Protocol Insulin Aspart 3 - 6 units 02/01/23 08:00 02/02/23 12:02 Insulin A
--- NOTE | 2023-02-02 15:52 | PM.IMPN ---
Progress Note: A&P Assessment and Plan (1) CVA (cerebral vascular accident): Qualifiers: CVA mechanism: unspecified Qualified Code(s): I63.9 - Cerebral infarction, unspecified Code(s): I63.9 - Cerebral infarction, unspecified Status: Acute Assessment and Plan: Patient recently diagnosed with CVA at [facility] and was at acute rehab when he started to complain of worsening right-sided weakness and slurred speech which brought him in however the time he reached the ED he was able to move his right leg. Head and neck CTA show acute/ subacute infarct in the left parietal lobe which is worsened from 01/25/2023, moderate nonspecific cerebral white matter disease likely represents chronic small vessel ischemic disease, severe stenosis of left A2 anterior cerebral artery, moderate stenosis in right and left posterior cerebral artery, moderate stenosis of the intracranial internal carotid arteries. Brain MRI shows large acute to subacute infarct in the left parietal lobe, with additional acute infarct in the immediate left periventricular white matter and the anterior corpus callosum and adjacent inferiomedial left frontal. Neurology consulted and recommending no further intervention other than to continue aspirin, Protonix, atorvastatin, and blood pressure medications. In light of his transaminitis which is elevated from previous lab, we will still hold the atorvastatin Continue to monitor labs Case coordination to arrange transfer back to rehab facility (2) Hemiparesis affecting right side as late effect of cerebrovascular accident: Code(s): I69.351 - Hemiplegia and hemiparesis following cerebral infarction affecting right dominant side Status: Acute Assessment and Plan: noted see above (3) Type 2 diabetes mellitus with hyperglycemia: Qualifiers: Diabetes mellitus roasterman insulin use: without roasterman use Qualified Code(s): E11.65 - Type 2 diabetes mellitus with hyperglycemia Code(s): E11.65 - Type 2 diabetes mellitus with hyperglycemia Status: Acute Assessment and Plan: Accu-Cheks AC and HS continue sliding scale insulin will check hemoglobin A1c in the morning labs. Subjective Date/time seen: 02/02/23 15:52 Interval history: Patient doing well today. Has no complaints at this time. Waiting on insurance authorization to go back to [facility]. Exam Narrative: GENERAL: Comfortable, no acute distress HENMT: moist mucous membranes EYES: EOM intact b/l NECK: no lymphadenopathy RESPIRATORY: clear to auscultation CARDIO: RRR GI: soft, nontender, bowel sounds present SKIN: no rashes EXTREMITIES: Right upper extremity 0/5 strength, left extremity 5/5 strength, right lower extremity 4/5 strength, left lower extremity 5/5 strength; alert oriented x4 Objective Data Vital Signs Vital Signs: Vital Signs - 24 hr 02/01/23 16:00 02/01/23 21:00 02/01/23 20:00 Temperature 97 F L Pulse Rate 91 78 84 Respiratory Rate 20 Blood Pressure 107/70 Pulse Oximetry 100 Oxygen Delivery Oxygen Flow Rate 02/01/23 20:00 02/02/23 00:00 02/02/23 04:00 Temperature Pulse Rate 76 76 Respiratory Rate Blood Pressure Pulse Oximetry 100 Oxygen Delivery Nasal Cannula Oxygen Flow Rate 3 02/02/23 04:36 02/02/23 08:18 02/02/23 09:34 Temperature 97.3 F L Pulse Rate 78 78 Respiratory Rate 18 Blood Pressure 110/68 Pulse Oximetry 98 Oxygen Delivery Room Air Oxygen Flow Rate 02/02/23 08:00 02/02/23 08:00 02/02/23 12:00 Temperature Pulse Rate 73 87 Respiratory Rate Blood Pressure Pulse Oximetry 98 Oxygen Delivery Nasal Cannula Oxygen Flow Rate 3 02/02/23 14:26 Temperature 97.8 F Pulse Rate 94 Respiratory Rate 18 Blood Pressure 100/61 Pulse Oximetry 95 Oxygen Delivery Oxygen Flow Rate Intake/Output Intake/Output: Intake & Output 01/30/23 01/31/23 02/01/23 02/02/23
[2023-02-02 16:52] LABS: Glucose Point of Care 146 mg/dl (65-105)
[2023-02-02 21:07] LABS: Glucose Point of Care 180 mg/dl (65-105)
[2023-02-03] VITALS (8 sets, daily range): BP systolic 124–159; BP diastolic 80–91; PULSE 80–91; RESP 14–20; TEMP 36.1–36.8; O2SAT 99
[2023-02-03] MEDS: HYDROcodone/acetaminophen (*CRX) 5-325 MG TABLET 1 TAB PO ×3 (02:33→13:27)
[2023-02-03 07:17] LABS: Basophils Absolute Auto 0.2 K/mm3 (0.0-0.1); Basophils Percent Auto 1.8 % (0.2-1.2); Eosinophils Absolute Auto 0.2 K/mm3 (0-0.3); Eosinophils Percent Auto 2.1 % (0-4.4); Hematocrit 50.6 % (42.0-52.0); Hemoglobin 15.9 g/dL (14.0-18.0); Immature Granulocyte Absolute 0.52 K/mm3 (0.00-0.031); Immature Granulocyte Percent A 5.7 % (0-0.5); Lymphocytes Absolute Auto 2.07 K/mm3 (0.9-3.2); Lymphocytes Percent Auto 22.8 % (18.3-44.2); Mean Corpuscular HGB Conc 31.4 g/dl (32-36); Mean Corpuscular Hemoglobin 28.2 pg (26-34); Mean Corpuscular Volume 89.9 fl (80-100); Mean Platelet Volume 11.9 fl (7.4-10.4); Monocytes Absolute Auto 0.9 K/mm3 (0.1-0.6); Monocytes Percent Auto 9.9 % (2.6-8.5); Neutrophils Absolute Auto 5.2 K/mm3 (1.3-6.7); Neutrophils Percent Auto 57.7 % (45.5-73.1); Platelet Count Result 266 k/mm3 (150-375); Red Blood Count 5.63 M/mm3 (4.6-6.20); Red Cell Distribution Width 14.7 % (11.5-14.5); White Blood Count 9.1 K/mm3 (4.5-10.0)
[2023-02-03 07:41] LABS: Alanine Aminotransferase 170 U/L (6-50); Albumin Level 3.7 g/dL (3.5-5.1); Alkaline Phosphatase 409 U/L (38-126); Anion Gap 6 mmol/L (8-16); Aspartate Amino Transferase 129 U/L (17-59); Blood Urea Nitrogen 32 mg/dL (9-20); Calcium 9.5 mg/dL (8.4-10.2); Carbon Dioxide 32 mmol/L (22-30); Chloride 101 mmol/L (98-107); Estimated CRCL calculation 55 ml/min; Estimated Glomerular Filt Rate > 60; Glucose 140 mg/dL (65-110); Potassium 4.1 mmol/L (3.4-5.0); Sodium 139 mmol/L (137-145)
[2023-02-03 08:41] LABS: Glucose Point of Care 175 mg/dl (65-105)
[2023-02-03] MEDS: TAMSULOSIN HCL 0.4 MG CAPSULE PO (09:56)
[2023-02-03] MEDS: DOCUSATE SODIUM 100 MG CAPSULE 200 MG PO (09:56)
[2023-02-03] MEDS: EMPAGLIFLOZIN 25 MG TABLET PO (09:56)
[2023-02-03] MEDS: ASPIRIN 81 MG CHEWABLE TABLET PO (09:56)
[2023-02-03] MEDS: lisinopriL 10 MG TABLET PO (09:57)
[2023-02-03] MEDS: FUROSEMIDE 20 MG TABLET PO (09:57)
[2023-02-03] MEDS: MORPHINE SULFATE (*CRX) 30 MG TABCR PO ×2 (09:57→21:14)
[2023-02-03] MEDS: CLOPIDOGREL BISULFATE 75 MG TABLET PO (09:57)
[2023-02-03] MEDS: carvediloL 6.25 MG TABLET PO ×2 (09:57→21:14)
[2023-02-03 12:28] LABS: Glucose Point of Care 151 mg/dl (65-105)
--- NOTE | 2023-02-03 14:21 | PCPTNOTE ---
The patient treatment was not able to be completed at this time due to patient having US test at bedside. Will plan to continue treatment per plan of care.
--- NOTE | 2023-02-03 14:23 | PCOTNOTE ---
The patient treatment was not able to be completed. Patient getting an ultrasound. Will plan to continue treatment per plan of care.
--- NOTE | 2023-02-03 14:55 | PM.IMPN ---
Progress Note: A&P Assessment and Plan (1) CVA (cerebral vascular accident): Qualifiers: CVA mechanism: unspecified Qualified Code(s): I63.9 - Cerebral infarction, unspecified Code(s): I63.9 - Cerebral infarction, unspecified Status: Acute Assessment and Plan: Patient recently diagnosed with CVA at [facility] and was at acute rehab when he started to complain of worsening right-sided weakness and slurred speech which brought him in however the time he reached the ED he was able to move his right leg. Head and neck CTA show acute/ subacute infarct in the left parietal lobe which is worsened from 01/25/2023, moderate nonspecific cerebral white matter disease likely represents chronic small vessel ischemic disease, severe stenosis of left A2 anterior cerebral artery, moderate stenosis in right and left posterior cerebral artery, moderate stenosis of the intracranial internal carotid arteries. Brain MRI shows large acute to subacute infarct in the left parietal lobe, with additional acute infarct in the immediate left periventricular white matter and the anterior corpus callosum and adjacent inferiomedial left frontal. Neurology consulted and recommending no further intervention other than to continue aspirin, Protonix, atorvastatin, and blood pressure medications. In light of his transaminitis which is elevated from previous lab, we will still hold the atorvastatin Continue to monitor labs Case coordination to arrange transfer back to rehab facility (2) Hemiparesis affecting right side as late effect of cerebrovascular accident: Code(s): I69.351 - Hemiplegia and hemiparesis following cerebral infarction affecting right dominant side Status: Acute Assessment and Plan: noted see above (3) Type 2 diabetes mellitus with hyperglycemia: Qualifiers: Diabetes mellitus meterman insulin use: without meterman use Qualified Code(s): E11.65 - Type 2 diabetes mellitus with hyperglycemia Code(s): E11.65 - Type 2 diabetes mellitus with hyperglycemia Status: Acute Assessment and Plan: Accu-Cheks AC and HS continue sliding scale insulin Subjective Date/time seen: 02/03/23 14:55 Interval history: Patient doing well today with no new complaints. Discussed patient's care with his daughter yesterday for approximately 30 minutes. Waiting on insurance authorization to send back to [facility] Exam Narrative: GENERAL: Comfortable, no acute distress HENMT: moist mucous membranes EYES: EOM intact b/l NECK: no lymphadenopathy RESPIRATORY: clear to auscultation CARDIO: RRR GI: soft, nontender, bowel sounds present SKIN: no rashes EXTREMITIES: Right upper extremity 0/5 strength, left extremity 5/5 strength, right lower extremity 4/5 strength, left lower extremity 5/5 strength; alert oriented x4 Objective Data Vital Signs Vital Signs: Vital Signs - 24 hr 02/02/23 16:00 02/02/23 20:33 02/02/23 22:00 Temperature 96.9 F L Pulse Rate 104 H 95 94 Respiratory Rate 20 Blood Pressure 129/85 Pulse Oximetry 98 Oxygen Delivery Oxygen Flow Rate 02/02/23 20:00 02/02/23 20:00 02/03/23 00:00 Temperature Pulse Rate 95 91 Respiratory Rate Blood Pressure Pulse Oximetry 98 Oxygen Delivery Nasal Cannula Oxygen Flow Rate 3 02/03/23 04:00 02/03/23 06:00 02/03/23 14:00 Temperature 97.9 F 98.2 F Pulse Rate 86 90 84 Respiratory Rate 20 18 Blood Pressure 124/81 131/80 Pulse Oximetry 99 99 Oxygen Delivery Oxygen Flow Rate Intake/Output Intake/Output: Intake & Output 01/31/23 02/01/23 02/02/23 02/03/23 23:59 23:59 23:59 23:59 Intake Total 956 1840 730 Output Total 450 2050 200 Balance 506 -210 530 Meds/Results Medications: Active Medications Generic Name Dose Route Start Last Admin Trade Name Freq PRN Reason Stop Dose Admin Acetaminophen 650 mg 01/31/23 19:24 01/31/23 23:22 Acetaminophen 32
[2023-02-03 17:30] LABS: Glucose Point of Care 210 mg/dl (65-105)
[2023-02-03 21:13] LABS: Glucose Point of Care 174 mg/dl (65-105)
[2023-02-03] MEDS: LORazepam (*CRX) 1 MG TABLET 2 MG PO (21:14)
[2023-02-04] VITALS (10 sets, daily range): BP systolic 110–127; BP diastolic 52–62; PULSE 63–91; RESP 14–20; TEMP 36.4–36.6; O2SAT 94–99
[2023-02-04 07:06] LABS: Basophils Absolute Auto 0.1 K/mm3 (0.0-0.1); Basophils Percent Auto 1.4 % (0.2-1.2); Eosinophils Absolute Auto 0.2 K/mm3 (0-0.3); Eosinophils Percent Auto 2.2 % (0-4.4); Hematocrit 46.4 % (42.0-52.0); Hemoglobin 14.5 g/dL (14.0-18.0); Immature Granulocyte Absolute 0.45 K/mm3 (0.00-0.031); Immature Granulocyte Percent A 5.3 % (0-0.5); Lymphocytes Absolute Auto 1.79 K/mm3 (0.9-3.2); Lymphocytes Percent Auto 21.2 % (18.3-44.2); Mean Corpuscular HGB Conc 31.3 g/dl (32-36); Mean Corpuscular Hemoglobin 28.3 pg (26-34); Mean Corpuscular Volume 90.4 fl (80-100); Mean Platelet Volume 11.5 fl (7.4-10.4); Monocytes Absolute Auto 1.1 K/mm3 (0.1-0.6); Monocytes Percent Auto 12.8 % (2.6-8.5); Neutrophils Absolute Auto 4.8 K/mm3 (1.3-6.7); Neutrophils Percent Auto 57.1 % (45.5-73.1); Platelet Count Result 231 k/mm3 (150-375); Red Blood Count 5.13 M/mm3 (4.6-6.20); Red Cell Distribution Width 14.7 % (11.5-14.5); White Blood Count 8.5 K/mm3 (4.5-10.0)
[2023-02-04 07:07] LABS: Alanine Aminotransferase 140 U/L (6-50); Albumin Level 3.2 g/dL (3.5-5.1); Alkaline Phosphatase 352 U/L (38-126); Anion Gap 6 mmol/L (8-16); Aspartate Amino Transferase 75 U/L (17-59); Bilirubin,Total 0.8 mg/dL (0.2-1.3); Blood Urea Nitrogen 38 mg/dL (9-20); Calcium 9.4 mg/dL (8.4-10.2); Carbon Dioxide 26 mmol/L (22-30); Chloride 105 mmol/L (98-107); Estimated CRCL calculation 42 ml/min; Estimated Glomerular Filt Rate 59; Glucose 133 mg/dL (65-110); Potassium 3.9 mmol/L (3.4-5.0); Sodium 137 mmol/L (137-145)
[2023-02-04 08:20] LABS: Glucose Point of Care 157 mg/dl (65-105)
--- NOTE | 2023-02-04 09:20 | PM.IMPN ---
Progress Note: A&P Assessment and Plan (1) CVA (cerebral vascular accident): Qualifiers: CVA mechanism: unspecified Qualified Code(s): I63.9 - Cerebral infarction, unspecified Code(s): I63.9 - Cerebral infarction, unspecified Status: Acute Assessment and Plan: Patient recently diagnosed with CVA at [facility] and was at acute rehab when he started to complain of worsening right-sided weakness and slurred speech which brought him in however the time he reached the ED he was able to move his right leg. Head and neck CTA show acute/ subacute infarct in the left parietal lobe which is worsened from 01/25/2023, moderate nonspecific cerebral white matter disease likely represents chronic small vessel ischemic disease, severe stenosis of left A2 anterior cerebral artery, moderate stenosis in right and left posterior cerebral artery, moderate stenosis of the intracranial internal carotid arteries. Brain MRI shows large acute to subacute infarct in the left parietal lobe, with additional acute infarct in the immediate left periventricular white matter and the anterior corpus callosum and adjacent inferiomedial left frontal. Neurology consulted and recommending no further intervention other than to continue aspirin, Protonix, atorvastatin, and blood pressure medications. In light of his transaminitis which is elevated from previous lab, we will still hold the atorvastatin Continue to monitor labs Case coordination to arrange transfer back to rehab facility (2) Hemiparesis affecting right side as late effect of cerebrovascular accident: Code(s): I69.351 - Hemiplegia and hemiparesis following cerebral infarction affecting right dominant side Status: Acute Assessment and Plan: noted see above (3) Type 2 diabetes mellitus with hyperglycemia: Qualifiers: Diabetes mellitus parts counterman insulin use: without parts counterman use Qualified Code(s): E11.65 - Type 2 diabetes mellitus with hyperglycemia Code(s): E11.65 - Type 2 diabetes mellitus with hyperglycemia Status: Acute Assessment and Plan: Accu-Cheks AC and HS continue sliding scale insulin Plan Discussion with daughter (POA) and she would like to change code status to DNR. Subjective Date/time seen: 02/04/23 09:20 Exam Narrative: GENERAL: Comfortable, no acute distress HENMT: moist mucous membranes, right facial drop EYES: EOM intact b/l NECK: no lymphadenopathy RESPIRATORY: clear to auscultation CARDIO: RRR GI: soft, nontender, bowel sounds present SKIN: no rashes EXTREMITIES: Right upper extremity 0/5 strength, left extremity 5/5 strength, right lower extremity 1/5 strength, left lower extremity 5/5 strength; alert oriented x4 Objective Data Vital Signs Vital Signs: Vital Signs - 24 hr 02/03/23 14:00 02/03/23 21:14 02/03/23 21:52 Temperature 98.2 F 96.9 F L Pulse Rate 84 80 83 Respiratory Rate 18 14 Blood Pressure 131/80 159/91 H Pulse Oximetry 99 99 Oxygen Delivery Oxygen Flow Rate 02/03/23 20:00 02/03/23 20:00 02/04/23 00:00 Temperature Pulse Rate 84 65 Respiratory Rate Blood Pressure Pulse Oximetry 99 Oxygen Delivery Nasal Cannula Oxygen Flow Rate 3 02/04/23 04:00 02/04/23 06:00 Temperature 97.9 F Pulse Rate 67 63 Respiratory Rate 14 Blood Pressure 110/62 Pulse Oximetry 99 Oxygen Delivery Oxygen Flow Rate Intake/Output Intake/Output: Intake & Output 02/01/23 02/02/23 02/03/23 02/04/23 23:59 23:59 23:59 23:59 Intake Total 956 1840 1230 500 Output Total 450 2050 500 500 Balance 506 -210 730 0 Meds/Results Medications: Active Medications Generic Name Dose Route Start Last Admin Trade Name Freq PRN Reason Stop Dose Admin Acetaminophen 650 mg 01/31/23 19:24 01/31/23 23:22 Acetaminophen 325 Mg Tablet PO 650 mg Q4H PRN Administration Mild Pain (1-3) or Fever Hydrocodone Bitart/Acetaminophen 1 t
--- NOTE | 2023-02-04 11:33 | WPDNEUROPN ---
Progress Note: A&P Assessment and Plan (1) CVA (cerebral vascular accident): Qualifiers: CVA mechanism: unspecified Qualified Code(s): I63.9 - Cerebral infarction, unspecified Code(s): I63.9 - Cerebral infarction, unspecified Status: Acute Assessment and Plan: Mr. Valladares is a 77 year old male with a history of congestive heart failure, diabetes, CAD, hyperlipidemia and recent stroke presenting due to acute worsening of R sided weakness. Repeat imaging shows evolution of L parietal stroke, which explains the worsening R sided weakness. There was report of L ICA stenosis, but patient's daughter reports that he never underwent any kind of intervention at [facility]. However, repeat CTA showed only 8% stenosis of proximal L ICA now. - Continue Aspirin 81mg daily - Plavix 75mg daily x 3 months - Resume statin once able, or may need to switch to different agent; goal LDL is <70 Subjective Date/time seen: 02/04/23 11:33 Interval history: Mr. Valladares is a 77 year old male with a history of congestive heart failure, diabetes, CAD, hyperlipidemia and recent stroke presenting due to acute worsening of R sided weakness. Patient as initially presented to [facility] on 01/13/23 for right sided weakness. MRI brain showed acute infarct over L anterior corpus callosum and left frontoparietal region. CTA brain/carotid reportedly showed L ICA stenosis of 69%. Patient was transferred to [facility] for possible intervention. Per patient's daughter, he underwent angioplasty but no stenting. He was eventually admitted to [facility] on 01/24/23. At this point, patient had R sided weakness but was still able to move his RUE and RLE somewhat. However, on 01/31, patient became completely flaccid on the right side. He was taken to [facility] ED, where he was unable to move the RUE but did have evidence of movement in the RLE. CTA brain/carotid showed severe stenosis of L A@ segment of AIDEN, moderate stenosis of R P1 and L P2, moderate stenosis of the intracranial ICAs, focal moderate stenosis of intracranial L vertebral artery, 18% stenosis of the proximal R ICA and 8% stenosis of the proximal L ICA. MRI brain showed large acute/subacute infarct in the left parietal lobe, with additional acute infarct in the immediate L periventricular white matter, L anterior corpus callosum, and adjacent inferomedial L frontal lobe. Decision was made to transfer patient back to [facility] since he had recently been treated there, patient was accepted but reportedly transfer would take too long due to bed availability so he was admitted to [facility]. Yesterday, patient was flaccid in the RUE, but still had documented 4/5 strength in the RLE. However today, patient was noted to be flaccid in the RLE as well. Repeat CT/CTA brain/carotid was done.which showed mild interval evolution of L parietal infarct, but no significant changes in the areas of stenosis. Blood pressure has ranged from 100-130s mostly. EKG showed sinus rhythm this admission. He is on aspirin 81mg daily and Plavix 75mg daily. He was on Lipitor 40mg daily, but it is currently being held due to transaminitis. Review of Systems Review of Systems: All systems reviewed & are unremarkable except as noted in HPI and below Musculoskeletal: Musculoskeletal: Reports myalgias Exam Const: General: comfortable and no acute distress HENMT: Mouth: Yes moist mucous membranes Eyes: Pupils: Equal, round and reactive pupils present EOM: EOMs intact bilaterally Resp: Effort & Inspection: normal respiratory effort Skin: General skin exam: normal color Neuro: Other: Awake, alert, Pupils equal and reactive bilaterally, EOMI, R facial droop, facial sensation intact, tongue protrudes midline, palate midline. Shoulder shrug normal. Strength 0/5 RUE, 2/5 RLE, 5/5 LUE and LLE. Sensation intact throughout. At times garbled speech, Gait deferred. Extrem: General: normal to inspection Objective Data Vital
--- NOTE | 2023-02-04 12:01 | PCOTNOTE ---
Pt is not appropriate to be seen for Occupational Therapy treatment this AM per RN due to waiting on results from recent head CT scan. Will attempt per POC duration/frequency when appropriate.
[2023-02-04 12:37] LABS: Glucose Point of Care 172 mg/dl (65-105)
[2023-02-04] MEDS: FUROSEMIDE 20 MG TABLET PO (12:52)
[2023-02-04] MEDS: TAMSULOSIN HCL 0.4 MG CAPSULE PO (12:52)
[2023-02-04] MEDS: DOCUSATE SODIUM 100 MG CAPSULE 200 MG PO (12:52)
[2023-02-04] MEDS: lisinopriL 10 MG TABLET PO (12:52)
[2023-02-04] MEDS: CLOPIDOGREL BISULFATE 75 MG TABLET PO (12:52)
[2023-02-04] MEDS: MORPHINE SULFATE (*CRX) 30 MG TABCR PO ×2 (12:52→20:31)
[2023-02-04] MEDS: carvediloL 6.25 MG TABLET PO ×2 (12:53→20:31)
[2023-02-04] MEDS: EMPAGLIFLOZIN 25 MG TABLET PO (12:53)
[2023-02-04] MEDS: ASPIRIN 81 MG CHEWABLE TABLET PO (12:53)
[2023-02-04 13:26] LABS: Hemoglobin A1C 7.4 % (<5.7)
--- NOTE | 2023-02-04 13:35 | PM.IMPN ---
Progress Note: A&P Assessment and Plan (1) CVA (cerebral vascular accident): Qualifiers: CVA mechanism: unspecified Qualified Code(s): I63.9 - Cerebral infarction, unspecified Code(s): I63.9 - Cerebral infarction, unspecified Status: Acute Assessment and Plan: Patient recently diagnosed with CVA at [facility] and was at acute rehab when he started to complain of worsening right-sided weakness and slurred speech which brought him in however the time he reached the ED he was able to move his right leg. Head and neck CTA show acute/ subacute infarct in the left parietal lobe which is worsened from 01/25/2023, moderate nonspecific cerebral white matter disease likely represents chronic small vessel ischemic disease, severe stenosis of left A2 anterior cerebral artery, moderate stenosis in right and left posterior cerebral artery, moderate stenosis of the intracranial internal carotid arteries. Brain MRI shows large acute to subacute infarct in the left parietal lobe, with additional acute infarct in the immediate left periventricular white matter and the anterior corpus callosum and adjacent inferiomedial left frontal. Neurology consulted and recommending no further intervention other than to continue aspirin, Protonix, atorvastatin, and blood pressure medications. In light of his transaminitis which is elevated from previous lab, we will still hold the atorvastatin Continue to monitor labs 02/04/23 Worsening symptoms of right-sided weakness. Repeat imaging showed evolution of left parietal stroke. Continue current treatment per neurology's recommendations. Case coordination to arrange transfer back to rehab facility. Waiting on a bed. (2) Hemiparesis affecting right side as late effect of cerebrovascular accident: Code(s): I69.351 - Hemiplegia and hemiparesis following cerebral infarction affecting right dominant side Status: Acute Assessment and Plan: noted see above (3) Type 2 diabetes mellitus with hyperglycemia: Qualifiers: Diabetes mellitus watermelon inspector insulin use: without watermelon inspector use Qualified Code(s): E11.65 - Type 2 diabetes mellitus with hyperglycemia Code(s): E11.65 - Type 2 diabetes mellitus with hyperglycemia Status: Acute Assessment and Plan: Accu-Cheks AC and HS continue sliding scale insulin Plan Discussion with daughter (POIsabella) and she would like to change code status to DNR. Subjective Date/time seen: 02/04/23 13:35 Interval history: Patient had an acute change this morning with new right facial droop and right leg is unable to move anymore. Call Neurology and they are aware of this. Repeat imaging did not show much of a difference between prior imaging and imaging from today. The CTA did show evolution of the left parietal stroke which explains worsening right-sided weakness. In advised by a Neurology that he continue on aspirin, Plavix and resume statin once able. Plan is still to send patient to [facility]. Exam Narrative: GENERAL: Comfortable, no acute distress HENMT: moist mucous membranes, right facial drop EYES: EOM intact b/l NECK: no lymphadenopathy RESPIRATORY: clear to auscultation CARDIO: RRR GI: soft, nontender, bowel sounds present SKIN: no rashes EXTREMITIES: Right upper extremity 0/5 strength, left extremity 5/5 strength, right lower extremity 1/5 strength, left lower extremity 5/5 strength; NEURO: right facial droop, alert oriented x4 Objective Data Vital Signs Vital Signs: Vital Signs - 24 hr 02/03/23 14:00 02/03/23 21:14 02/03/23 21:52 Temperature 98.2 F 96.9 F L Pulse Rate 84 80 83 Respiratory Rate 18 14 Blood Pressure 131/80 159/91 H Pulse Oximetry 99 99 Oxygen Delivery Oxygen Flow Rate 02/03/23 20:00 02/03/23 20:00 02/04/23 00:00 Temperature Pulse Rate 84 65 Respiratory Rate Blood Pressure Pulse Oximetry 99 Oxygen Delivery Nasal Ca
[2023-02-04] MEDS: HYDROcodone/acetaminophen (*CRX) 5-325 MG TABLET 1 TAB PO ×2 (14:00→17:59)
--- NOTE | 2023-02-04 14:26 | PCSTNOTE ---
Please refer to the Bedside Swallow Evaluation in the EMR. Please note, silent aspiration cannot be ruled out at bedside.
--- NOTE | 2023-02-04 15:32 | PCPTNOTE ---
Attempted to see in A.M. for PT, however RN reports a change in medical condition and further testing may be needed. Hospitalist Coby Ramirez confirms medical condition change. PT held this morning. PT will continue to follow and treat when medically able.
[2023-02-04 16:23] LABS: Glucose Point of Care 159 mg/dl (65-105)
[2023-02-04] MEDS: LORazepam (*CRX) 1 MG TABLET 2 MG PO (20:30)
[2023-02-04] MEDS: INSULIN ASPART (*BKC) 100 UNITS/ML SUB-Q (20:33)
[2023-02-04 20:58] LABS: Glucose Point of Care 209 mg/dl (65-105)
[2023-02-05] VITALS (9 sets, daily range): BP systolic 127–138; BP diastolic 61–80; PULSE 87–105; RESP 14; TEMP 36.2–36.4; O2SAT 94–99
[2023-02-05 06:51] LABS: Hematocrit 50.8 % (42.0-52.0); Hemoglobin 16.1 g/dL (14.0-18.0); Mean Corpuscular HGB Conc 31.7 g/dl (32-36); Mean Corpuscular Hemoglobin 28.3 pg (26-34); Mean Corpuscular Volume 89.3 fl (80-100); Mean Platelet Volume 11.6 fl (7.4-10.4); Platelet Count Result 241 k/mm3 (150-375); Red Blood Count 5.69 M/mm3 (4.6-6.20); Red Cell Distribution Width 14.7 % (11.5-14.5); White Blood Count 13.8 K/mm3 (4.5-10.0)
[2023-02-05 07:11] LABS: Alanine Aminotransferase 127 U/L (6-50); Albumin Level 3.8 g/dL (3.5-5.1); Alkaline Phosphatase 420 U/L (38-126); Anion Gap 9 mmol/L (8-16); Aspartate Amino Transferase 57 U/L (17-59); Bilirubin,Total 1.2 mg/dL (0.2-1.3); Blood Urea Nitrogen 32 mg/dL (9-20); Calcium 9.7 mg/dL (8.4-10.2); Carbon Dioxide 24 mmol/L (22-30); Chloride 105 mmol/L (98-107); Estimated CRCL calculation 55 ml/min; Estimated Glomerular Filt Rate > 60; Glucose 170 mg/dL (65-110); Potassium 4.2 mmol/L (3.4-5.0); Sodium 138 mmol/L (137-145)
[2023-02-05 08:07] LABS: Glucose Point of Care 146 mg/dl (65-105)
[2023-02-05] MEDS: FUROSEMIDE 20 MG TABLET PO (08:59)
[2023-02-05] MEDS: EMPAGLIFLOZIN 25 MG TABLET PO (08:59)
[2023-02-05] MEDS: ATORVASTATIN 40 MG TABLET PO (09:00)
[2023-02-05] MEDS: DOCUSATE SODIUM 100 MG CAPSULE 200 MG PO (09:00)
[2023-02-05] MEDS: CLOPIDOGREL BISULFATE 75 MG TABLET PO (09:00)
[2023-02-05] MEDS: MORPHINE SULFATE (*CRX) 30 MG TABCR PO (09:00)
[2023-02-05] MEDS: lisinopriL 10 MG TABLET PO (09:00)
[2023-02-05] MEDS: carvediloL 6.25 MG TABLET PO (09:00)
[2023-02-05] MEDS: TAMSULOSIN HCL 0.4 MG CAPSULE PO (09:00)
[2023-02-05] MEDS: ASPIRIN 81 MG CHEWABLE TABLET PO (09:01)
--- NOTE | 2023-02-05 12:38 | PCPTNOTE ---
Per RN, hold PT today due to pt possibly going to comfort care.
--- NOTE | 2023-02-05 12:48 | PCOTNOTE ---
Per PA, pt is not appropriate for occupational therapy treatment today. Care Coordinating has been order for possible hospice/comfort care referral.
--- NOTE | 2023-02-05 13:22 | PM.DS ---
DS: Admitting Diagnosis Discharge Date 02/05/23 Admitting Diagnosis CVA DS: Discharge Diagnosis Discharge Diagnosis (1) CVA (cerebral vascular accident): Qualifiers: CVA mechanism: unspecified Qualified Code(s): I63.9 - Cerebral infarction, unspecified Code(s): I63.9 - Cerebral infarction, unspecified Status: Acute (2) Hemiparesis affecting right side as late effect of cerebrovascular accident: Code(s): I69.351 - Hemiplegia and hemiparesis following cerebral infarction affecting right dominant side Status: Acute (3) Type 2 diabetes mellitus with hyperglycemia: Qualifiers: Diabetes mellitus local intermodal truck driver insulin use: without skilled nursing use Qualified Code(s): E11.65 - Type 2 diabetes mellitus with hyperglycemia Code(s): E11.65 - Type 2 diabetes mellitus with hyperglycemia Status: Acute DS: Summary Hospital Course Hospital Course: This is a 77-year-old male with a past medical history of systolic congestive heart failure, type 2 diabetes, CAD, hyperlipidemia and chronic back pain the presented to the ED from [facility] on 02/01/2023 due to worsening stroke symptoms. Patient had recently been been diagnosed with a stroke on 01/17/2023 showing infarct of anterior corpus callosum and left frontoparietal region. He had an EF of 35-40% and he was transferred to [place] for internal carotid stenosis up to 69%. He underwent carotid revascularization via angioplasty and stenting on 01/19/2023. He was started on Plavix, atorvastatin, aspirin and Coreg. Patient had right-sided weakness after the stroke with complete immobility of his right hand. He did get some mobility back in his right leg though. When he was a [employer] he had worsening of these neurologic symptoms with decreased movement in his right leg. He also had slowed speech. Repeat imaging showed an acute/subacute infarct in the left parietal lobe which is worsened. Neuro was consulted and recommending continuing his current medications he is on right now. During his hospital stay he did work with therapy and planned on going to [facility]. On 10/09/2022 patient had an acute neuro change with worsening right leg mobility and right facial droop. Contacted neuro and they recommended a repeat CTA which showed evolution of the left parietal stroke explaining patient's symptoms. Once again did not recommend changing current medications at this time. Discussed with the daughter and she would like patient to be with hospice care. Care coordination was consulted and hospice care was set up for the patient. He will be discharged home on hospice. Time Spent with Patient Time attestation: Total time spent providing and/or coordinating discharge services: DS: Data Data Completed and Pending Labs on day of discharge: Labs from last 24 hours 02/05/23 02/05/23 02/04/23 07:58 06:36 20:29 WBC 13.8 H RBC 5.69 Hgb 16.1 Hct 50.8 MCV 89.3 MCH 28.3 MCHC 31.7 L RDW 14.7 H Plt Count 241 MPV 11.6 H Sodium 138 Potassium 4.2 Chloride 105 Carbon Dioxide 24 Anion Gap 9 BUN 32 H Creatinine 0.90 Estim Creat Clear Calc 55 Estimated GFR > 60 Glucose 170 H POC Capillary Glucose 146 H 209 H Hemoglobin A1c Calcium 9.7 Total Bilirubin 1.2 AST 57 ALT 127 H Alkaline Phosphatase 420 H Total Protein 7.0 Albumin 3.8 02/04/23 02/04/23 16:12 06:36 WBC RBC Hgb Hct MCV MCH MCHC RDW Plt Count MPV Sodium Potassium Chloride Carbon Dioxide Anion Gap BUN Creatinine Estim Creat Clear Calc Estimated GFR Glucose POC Capillary Glucose 159 H Hemoglobin A1c 7.4 H Calcium Total Bilirubin AST ALT Alkaline Phosphatase Total Protein Albumin Discharge Plan Discharge Attending physician on discharge: Eric Whitehead Consulting providers: Noemy Ellington Discharging Clinician: Gladis Ramirez
== END 2023-02-05 15:40 | disposition hospice, home (50) | DRG 65 ==
LOC: ANHED 14:11 → ANH3MEDSUR 20:58
PROVIDERS: Nurse Practitioner Acute Care; Student in an Organized Health Care Education/Training Program; Admitting Provider Internal Medicine; Emergency Provider Student in an Organized Health Care Education/Training Program; PCP Family Medicine; Visit Provider Internal Medicine Critical Care Medicine
DX: I63.9 Cerebral infarction, unspecified (principal); B37.49 Other urogenital candidiasis; I50.22 Chronic systolic (congestive) heart failure; I69.351 Hemiplegia and hemiparesis following cerebral infarction affecting right dominant side; J96.11 Chronic respiratory failure with hypoxia; R47.81 Slurred speech; E11.65 Type 2 diabetes mellitus with hyperglycemia; E11.9 Type 2 diabetes mellitus without complications; I25.10 Atherosclerotic heart disease of native coronary artery without angina pectoris; N40.0 Benign prostatic hyperplasia without lower urinary tract symptoms; J44.9 Chronic obstructive pulmonary disease, unspecified; M50.30 Other cervical disc degeneration, unspecified cervical region; M51.36 Other intervertebral disc degeneration, lumbar region; E78.5 Hyperlipidemia, unspecified; R53.81 Other malaise; R29.709 NIHSS score 9; Z99.81 Dependence on supplemental oxygen
CPT/HCPCS: 36415; 70496; 70498; 70553; 71045; 76705; 80053; 82948; 83036; 84484; 85025; 85027; 85610; 85730; 92610; 93005; 97161; 97165; 99285; A4565; A9270; G0378; J1815; Q9967